=== PATIENT | male | born 1980 | race American Indian/Alaskan Native ===

== ENCOUNTER 2017-09-16 12:06 | Day surgery (SDC) | payer OTHER ==
[~2017-09-16 12:06] MED LIST: ANCEF/STERILE WATER 2 GM/20 ML IV NR
[2017-09-16] MEDS ORDERED: NACL BACTERIOSTATIC INFILTRATI ONE (12:42)
[2017-09-16] MEDS ORDERED: DILAUDID ONE (12:49)
[2017-09-16] MEDS ORDERED: DIPRIVAN 10 MG/ML IV ONE (12:50)
--- NOTE | 2017-09-16 12:58 | Anesthesia Consultation ---
Anesthesia Consult and Med Hx Date of service: 09/16/17 - Airway Anesthetic Teeth Evaluation: Good ROM Head & Neck: Adequate Mental/Hyoid Distance: Adequate Mallampati Class: Class I Intubation Access Assessment: Good - Pulmonary Exam CTA: Yes - Cardiac Exam Cardiac Exam: RRR - Pre-Operative Health Status ASA Pre-Surgery Classification: ASA1 Proposed Anesthetic Plan: General - Other Systems Hx Alcohol Use: Yes (3 DRINKS A WEEK) Hx Cancer: No
--- NOTE | 2017-09-16 12:58 | Anesthesia Day of Surgery ---
Anesthesia Day of Surgery - Day of Surgery Patient Examined: Yes Patient H&P Reviewed: Yes Patient is NPO: Yes
[2017-09-16] MEDS ORDERED: VERSED IV NR (13:00)
[2017-09-16] MEDS ORDERED: PEPCID IV NR (13:00)
[2017-09-16] MEDS ORDERED: LACTATED RINGERS 1,000 ML IV SCH (13:00)
[2017-09-16] MEDS ORDERED: MARCAINE 0.25% INFILTRATI ONE ×2 (13:06→13:22)
[2017-09-16] MEDS ORDERED: PERCOCET 5/325 PO PRN (13:12)
[2017-09-16] MEDS ORDERED: ZOFRAN IV PRN (13:12)
[2017-09-16] MEDS ORDERED: ANCEF/STERILE WATER 2 GM/20 ML 2 GM/20 ML SYRINGE IV ONE (13:12)
[2017-09-16] MEDS ORDERED: NACL 0.9% IR ONE (13:22)
[2017-09-16] MEDS ORDERED: QUELICIN ONE (13:57)
[2017-09-16] MEDS ORDERED: ZEMURON IV ONE (13:57)
[2017-09-16] MEDS ORDERED: XYLOCAINE MPF 2% ONE (13:58)
[2017-09-16] MEDS ORDERED: ANCEF/STERILE WATER 2 GM/20 ML IV NR (15:00)
[2017-09-16] MEDS ORDERED: ZOFRAN ONE (15:23)
--- NOTE | 2017-09-16 15:24 | Short Stay Summary ---
Short Stay Documentation Date of service: 09/16/17 - History H&P: obtained from office - Allergies and Medications Current Medications: Allergies No Known Allergies Allergy (Verified 09/16/17 12:32) Home Medications Medication Instructions Recorded Confirmed Last Taken Type No Known Home Medications [No 09/15/17 09/15/17 Unknown History Reported Home Medications] Active Medications Cefazolin Sodium (Ancef/Sterile Water 2 Gm/20 Ml) 2 gm IV PREOP NR Stop: 09/16/17 23:59 Famotidine (Pepcid) 20 mg IV PREOP NR Stop: 09/16/17 23:59 Last Admin: 09/16/17 13:17 Dose: 20 mg Lactated Ringer's (Lactated Ringers) 1,000 mls @ 100 mls/hr IV DIRECT MARTHA Last Admin: 09/16/17 13:15 Dose: 100 mls/hr Midazolam HCl (Versed) 2 mg IV PREOP NR Stop: 09/16/17 23:59 Last Admin: 09/16/17 13:16 Dose: 2 mg Ondansetron HCl (Zofran) 4 mg IV ONCE PRN PRN Reason: Nausea And Vomiting Oxycodone/Acetaminophen (Percocet 5/325) 1 tab PO ONCE PRN PRN Reason: Pain, Moderate (4-6) - Brief post op/procedure progress note Date of procedure: 09/16/17 Pre-op diagnosis: soft tissue mass posterior scalp >2cm Post-op diagnosis: same Procedure: Excision of soft tissue mass posterior scalp >2cm Anesthesia: GETA, local Surgeon: JOHNNY RIVAS Estimated blood loss: 50-100ml Pathology: list (soft tissue mass) Specimen disposition: to lab Condition: stable - Disposition Condition at discharge: Good Disposition: DC-01 TO HOME OR SELFCARE Short Stay Discharge Plan Activity: no restrictions Diet: regular Wound: change dressing (Daily and as needed whenever wet; Dry gauze dressing) Special Instructions: other (May shower) Follow up with: Shabana WEST [Other] - 7 Days JOHNNY IRVAS MD [Staff Physician] - 09/18/17 Prescriptions: Ciprofloxacin HCl [Cipro] 500 mg PO Q12HR #14 tablet oxyCODONE /ACETAMINOPHEN [Percocet 5/325] 1 - 2 tab PO Q4HR PRN #20 tab PRN Reason: Pain
--- NOTE | 2017-09-16 19:21 | Operative Report ---
PREOPERATIVE DIAGNOSIS: Soft tissue mass, posterior scalp, greater than 2 cm in size. POSTOPERATIVE DIAGNOSIS: Soft tissue mass, posterior scalp, greater than 2 cm in size. PROCEDURE: Excision of soft tissue mass, posterior scalp, greater than 2 cm. SURGEON: Alexi Torres M.D. ANESTHESIA: General and local. ESTIMATED BLOOD LOSS: Minimal. SPECIMEN: Soft tissue mass, posterior scalp. IMPLANTS: None. DRAINS: A quarter-inch [place] type drain was placed. COMPLICATIONS: None. INDICATIONS: This is a 37-year-old gentleman who has a symptomatic soft tissue mass in his posterior scalp, which he had noticed to increase in its size. He presents now for excision for diagnostic purposes. DESCRIPTION OF PROCEDURE: The patient was brought to the operating room, identified, and placed in the supine position. General anesthesia was achieved. He was then placed in prone position. His posterior scalp and neck were then prepped and draped in usual manner. We made an incision over top of the mass. There was a small punctate area in the skin, just above this area, which led me to believe initially that this may have been a very large sebaceous cyst; however, as it was being dissected this became obvious that it was not. It was very firm and fibrotic and fused with Galea's fascia underneath. It actually had a vascular stalk going to its base, which had to be ligated. It was removed in its entirety, but it was not well encapsulated. This was done with cautery. Once the specimen was removed, I was concerned because of the characteristics and of that I needed to kimberly it with silk sutures for orientation purposes. The cavity was quite large when we were done and I was concerned about significant seroma formation in this area. Therefore, I placed a Hai-type drain through a counterincision on the inferior aspect of the opening, anchored in place with a 3-0 silk. The cavity was examined and found to be hemostatic. We anesthetized the entire area with Marcaine. There were no signs of any other tissue that was abnormal. We closed the deeper layer of the skin with a 3-0 Vicryl suture and closed the epidermis with a 4-0 Vicryl suture and skin glue. We placed a ____ gauze around the passive drain and anchored it to the neck skin with tape. He tolerated the procedure well without complications. JOB# [id number] BALAJI/OZ
[2017-09-16 20:28] VITALS: BP 124/72
== END 2017-09-16 17:35 | disposition home or self-care (01) ==
LOC: OR 12:06
PROVIDERS: ATTEND Surgery
DX: M79.9 Soft tissue disorder, unspecified (principal)
CPT/HCPCS: 21014; 88305; J0330; J0690; J1170; J2250; J2405; J2704; J7120; 88307